=== PATIENT | male | born 1995 | race Caucasian/White ===

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

== ENCOUNTER 2020-06-21 20:42 | Emergency (ER) | payer OTHER ==
[~2020-06-21 20:42] MED LIST: IBUPROFEN800 MG PO; NORCO 5-325 TA1 EACH PO
[2020-06-21] MEDS ORDERED: IBUPROFEN800 MG PO (22:06)
[2020-06-21] MEDS ORDERED: PRIMLEV 5-3001 EACH PO (22:06)
[2020-06-22] MEDS ORDERED: PERCOCET 5-3251 EACH PO (09:55)
== END 2020-06-21 22:21 | disposition home or self-care (01) ==
LOC: FER 20:42
DX: S43.015A Anterior dislocation of left humerus, initial encounter (principal); W01.0XXA Fall on same level from slipping, tripping and stumbling without subsequent striking against object, initial encounter
CPT/HCPCS: 73020; 94760; 96374; 96375; J2270; J2405; J2704